=== PATIENT | female | born 1955 | race African-American/Black ===

== ENCOUNTER 2023-03-27 13:16 | Emergency (ER) | payer SELFPAY ==
[~2023-03-27] VITALS: Ht 170.2 cm; Wt 97.0 kg
[2023-03-27 13:19] VITALS: O2SAT 99
[2023-03-27 17:42] VITALS: BP 168/86; PULSE 72; RESP 16; TEMP 98.2
== END 2023-03-27 17:44 | disposition home or self-care (01) ==
LOC: ER 13:16
DX: S82.831A Other fracture of upper and lower end of right fibula, initial encounter for closed fracture (principal); X58.XXXA Exposure to other specified factors, initial encounter; Y93.89 Activity, other specified; Y92.89 Other specified places as the place of occurrence of the external cause; Y99.8 Other external cause status
CPT/HCPCS: 73610; 29515; 99283; Z7610